=== PATIENT | male | born 1980 | race Caucasian/White ===

== ENCOUNTER 2017-10-20 18:22 | Emergency (ER) | payer OTHER, MEDICAID ==
[2017-10-20] MEDS ORDERED: ACETAMINOPHEN 325 MG TABLET PO STA (18:46)
--- NOTE | 2017-10-20 18:48 | ED Physician Documentation ---
PD HPI ABD PAIN - Stated complaint Stated Complaint: ABD PX - Chief complaint Chief Complaint: Abd Pain - History obtained from History obtained from: Patient - History of Present Illness Timing - onset: Other (He developed burning and tearing right lower quadrant pain about 2:00 today while putting his bag in his truck. The bag is quite heavy. He was at work. He denies any nausea or fevers, no trouble with his bowel movements. No history of abdominal surgeries. He dinner just before I coming, around 6 PM.) Review of Systems Ten Systems: 10 systems reviewed and negative Constitutional: denies: Fever, Chills, Myalgias Nose: reports: Reviewed and negative Throat: reports: Reviewed and negative Respiratory: reports: Reviewed and negative PD PAST MEDICAL HISTORY - Past Medical History Past Medical History: No - Past Surgical History Past Surgical History: No - Present Medications Home Medications: Ambulatory Orders Medication Instructions Recorded Confirmed No Known Home Medications [No 10/20/17 10/20/17 Known Home Medications] - Allergies Allergies/Adverse Reactions: Allergies Allergy/AdvReac Type Severity Reaction Status Date / Time No Known Drug Allergies Allergy Verified 10/20/17 18:37 - Social History Does the pt smoke?: No Smoking Status: Never smoker - Family History Family history: reports: Non contributory PD ED PE NORMAL - Vitals Vital signs reviewed: Yes - General General: Alert and oriented X 3, No acute distress - Neck Neck: Supple, no meningeal sign, No bony TTP - Cardiac Cardiac: RRR, No murmur - Respiratory Respiratory: No respiratory distress, Clear bilaterally - Abdomen Abdomen: Other (He is tender in the right lower quadrant and also the right inguinal area with a suggestion but not a clear hernia mass. Testes are normal and descended and nontender.) - Back Back: No CVA TTP, No spinal TTP - Derm Derm: Normal color, Warm and dry - Extremities Extremities: No edema, No calf tenderness / cord - Neuro Neuro: Alert and oriented X 3, Normal speech - Psych Psych: Normal mood, Normal affect Results - Vitals Vitals: Vital Signs - 24 hr 10/20/17 10/20/17 18:35 20:32 Temperature 36.5 C Heart Rate 75 60 Respiratory 18 16 Rate Blood Pressure 144/83 H 116/69 O2 Saturation 98 100 Oxygen O2 Source Room air - Labs Labs: Laboratory Tests 10/20/17 10/20/17 19:00 19:00 WBC 6.5 RBC 5.32 Hgb 16.0 Hct 46.8 MCV 87.9 MCH 30.1 MCHC 34.2 RDW 13.3 Plt Count 255 MPV 8.3 Neut # 3.1 Lymph # 2.6 Simpson # 0.6 Eos # 0.2 Baso # 0.0 Absolute Nucleated RBC 0.00 Nucleated RBC % 0.1 Sodium 138 Potassium 3.5 Chloride 102 Carbon Dioxide 27 Anion Gap 9.0 BUN 13 Creatinine 0.8 Estimated GFR (MDRD) 108 Glucose 81 Calcium 8.9 Total Bilirubin 0.7 AST 33 ALT 50 Alkaline Phosphatase 63 Total Protein 8.2 Albumin 4.7 Globulin 3.5 Albumin/Globulin Ratio 1.3 Lipase 13 L - Rads (name of study) CT A/P Radiology: EMP read contemporaneously (Fat-containing right inguinal hernia without other abnormality) PD MEDICAL DECISION MAKING - ED course ED course: He has a history most consistent with a new right inguinal hernia from work today. He did have some right lower quadrant tenderness this this was concerning for appendicitis and a CT was done for same and negative, showing only the right inguinal hernia with only fat in it. Surgical follow-up was advised. Departure - Departure Disposition: 01 Home, Self Care Clinical Impression: Right inguinal hernia Condition: Good Record reviewed to determine appropriate education?: Yes Instructions: ED Hernia Inguinal Follow-Up: Alfonzo Sun MD [Provider Admit Priv/Credential] - Comments: Ibuprofen as needed for pain, limit lifting to less than 15 pounds. Return if worse. Forms: Activity restrictions Discharge Date/Time: 10/20/17 20:47
[2017-10-20 19:11] LABS: BASOPHILS % (AUTO) 0.6 %; EOSINOPHILS # (AUTO) 0.2 10^3/uL (0.0-0.7); EOSINOPHILS % (AUTO) 2.4 %; LYMPHOCYTES # (AUTO) 2.6 10^3/uL (1.5-3.5); LYMPHOCYTES % (AUTO) 40.3 %; MEAN CORPUSCULAR HEMOGLOBIN 30.1 pg (27.0-31.0); MEAN CORPUSCULAR HGB CONC 34.2 g/dL (32.0-36.0); MEAN CORPUSCULAR VOLUME 87.9 fL (80.0-94.0); MEAN PLATELET VOLUME 8.3 fL (7.4-11.4); MONOCYTES # (AUTO) 0.6 10^3/uL (0.0-1.0); MONOCYTES % (AUTO) 9.2 %; NEUTROPHILS # (AUTO) 3.1 10^3/uL (1.5-6.6); NEUTROPHILS % (AUTO) 47.5 %; PLT - PLATELET COUNT 255 10^3/uL (130-450); RED BLOOD COUNT 5.32 10^6/uL (4.70-6.10); RED CELL DISTRIBUTION WIDTH 13.3 % (12.0-15.0); WHITE BLOOD COUNT 6.5 x10^3/uL (4.8-10.8)
[2017-10-20 19:23] LABS: ALBUMIN 4.7 g/dL (3.2-5.5); ALBUMIN/GLOBULIN RATIO 1.3 (1.0-2.2); BILIRUBIN,TOTAL 0.7 mg/dL (0.2-1.0); CALCIUM 8.9 mg/dL (8.5-10.3); CREATININE 0.8 mg/dL (0.6-1.2); TOTAL PROTEIN 8.2 g/dL (6.7-8.2)
[2017-10-20] MEDS ORDERED: IOPAMIDOL-300 100 ML VIAL ONE (19:54)
[2017-10-20] MEDS ORDERED: IOPAMIDOL-300 100 ML VIAL IVP ONE (20:09)
--- NOTE | 2017-10-20 20:28 | CT Report ---
EXAM: CT ABDOMEN AND PELVIS EXAM DATE: 10/20/2017 08:10 PM. CLINICAL HISTORY: IV only, RLQ pain, prob hernia. COMPARISONS: None. TECHNIQUE: Routine helical CT imaging was performed through the abdomen and pelvis. IV contrast: 100 ML ISOVUE 300. Enteric contrast: No. Reconstructions: Coronal and sagittal. In accordance with CT protocol optimization, one or more of the following dose reduction techniques w ere utilized for this exam: automated exposure control, adjustment of mA and/or KV based on patient s ize, or use of iterative reconstructive technique. FINDINGS: Lung Bases: Unremarkable. Liver: Normal. No masses. Gallbladder/Bile Ducts: Unremarkable. Spleen: Normal. Pancreas: Normal. Adrenal Glands: Normal. Kidneys: Normal. No masses or hydronephrosis. Peritoneal Cavity/Bowel: Normal. No free fluid, free air or adenopathy. No masses or acute inflammato ry process. The appendix is well visualized and normal. Pelvic Organs: There is a fat-containing right inguinal hernia. The neck of the hernia measures 1.5 c m in diameter. Vasculature: No aneurysms or other significant abnormality. Bones: No significant abnormality. Other: None. IMPRESSION: 1. Fat-containing right inguinal hernia. 2. Otherwise negative. Normal appendix. [facility] Referring Provider Line: [phone] SITE ID: [id number]
--- NOTE | 2017-10-20 20:28 | CT Preliminary Report ---
Exam: CT ABDOMEN/PELVIS W/ IMPRESSION: 1. Fat-containing right inguinal hernia. 2. Otherwise negative. Normal appendix. [facility] SITE ID: [id number]
[2017-10-20 20:32] VITALS: BP 116/69
[2017-10-20] MEDS ORDERED: CITALOPRAM 10 MG TABLET ONE (21:18)
== END 2017-10-20 20:47 | disposition home or self-care (01) ==
LOC: ED 18:22
DX: K40.90 Unilateral inguinal hernia, without obstruction or gangrene, not specified as recurrent (principal); R10.31 Right lower quadrant pain; X50.0XXA Overexertion from strenuous movement or load, initial encounter; Y99.0 Civilian activity done for income or pay
CPT/HCPCS: 36415; 74177; 80053; 83690; 85025; 99283; 99284; A9270; Q9967; 1040M

== ENCOUNTER 2017-11-17 06:37 | Day surgery (SDC) | payer OTHER, MEDICAID ==
[2017-11-17] MEDS ORDERED: LACTATED RINGERS 1,000 ML IV ONE ×2 (07:30→09:57)
[2017-11-17] MEDS ORDERED: ceFAZolin 2 GM/50 ML 2 GM/50 ML BAG IV ONE (07:30)
[2017-11-17] MEDS ORDERED: BUPIVACAINE 0.5% PF 10 ML VIAL ONE (07:30)
[2017-11-17] MEDS ORDERED: BUPIVACAINE 0.5% PF 30 ML VIAL SUBQ ONE (09:56)
[2017-11-17] MEDS ORDERED: ONDANSETRON 4 MG/2 ML VIAL IVP ONE (10:00)
[2017-11-17] MEDS ORDERED: MIDAZOLAM 2 MG/2 ML VIAL IVP ONE (10:00)
[2017-11-17] MEDS ORDERED: KETOROLAC 30 MG/ML VIAL IVP ONE (10:00)
[2017-11-17] MEDS ORDERED: LIDOCAINE-MPF 2% 5 ML VIAL IM ONE (10:00)
[2017-11-17] MEDS ORDERED: DEXAMETHASONE 4 MG/ML VIAL IVP ONE (10:00)
[2017-11-17] MEDS ORDERED: PROPOFOL 200 MG/20 ML VIAL IVP ONE (10:00)
[2017-11-17] MEDS ORDERED: fentaNYL 250 MCG/5 ML VIAL IVP ONE (10:00)
[2017-11-17] MEDS ORDERED: ACETAMINOPHEN 1,000 MG/100 ML 100 ML IV ONE (10:00)
--- NOTE | 2017-11-17 10:53 | OPERATIVE REPORT ---
Operative Report - General Procedure Date: 11/17/17 Planned Procedure: Right inguinal herniorrhaphy Pre-Op Diagnosis: Right inguinal hernia Procedure Performed: Right indirect inguinal herniorrhaphy with mesh and excision right cord lipoma Post Op Diagnosis: Indirect right inguinal hernia and right cord lipoma - Procedure Note Primary Surgeon: Barry Roth MD Anesthesia Provider: Salomón Flores CRNA Anesthesia Technique: General LMA, Local (30 mL of half percent Marcaine) IV Fluids (mL): 800 Estimated Blood Loss (mL): 5 Complications: None. - Other Other Information/Narrative: OPERATIVE DESCRIPTION/REPORT: After verbal and written informed consent was obtained detailing the risks of infection, bleeding requiring transfusion with its risks, nerve injury, and , and after I met with the patient confirming the surgery and the site of the surgery and after initialing the site of the surgery with a surgical marker , the patient was brought to the operative suite and placed supine on the operating table. Great care was taken to avoid pressure points to prevent pressure necrosis or nerve injury. Monitoring devices were applied along with TEDs and pneumatic compressive stockings (to prevent DVT). The patient received preoperative antibiotics for surgical prophylaxis. Salomón Flores sedated and anesthetized the patient for the entire procedure. The patient was prepped and draped in the usual sterile manner. With the patient draped my initials were clearly visible. A "time in" then confirmed that the patient was identified with 3 identifiers (name, date and medical record number), the history and physical was in the chart, the signed consent confirming the procedure was in the chart, the patient was in the correct position, the aforementioned prophylactic measures were in place or given, we had the correct personnel and equipment to complete the procedure and that anesthesia, surgery and nursing were given an opportunity to express any concerns. With the agreement of everyone in the room, we proceeded with the operation. A standard inguinal incision was made and dissection was carried down to the external oblique aponeurosis using a combination of Metzenbaum scissors and Bovie electrocautery. The external oblique aponeurosis was cleared of overlying adherent tissue, and the external ring was delineated. The external oblique was the incised with a scalpel and this incision was carried out to the external ring using Metzenbaum scissors. Having exposed the inguinal canal, the cord structures were from the canal using blunt dissection, and a [place] drain was placed around the cord structures at the level of the pubic tubercle. This Analy drain was then used to retract the cord structures as needed. Adherent cremasteric muscle was dissected free from the cord using Bovie electrocautery. The cord was then explored using a combination of sharp and blunt dissection, and the sac was found anteromedially to the cord structures. Dissection along the cord structures found a lipoma that was dissected back to the internal ring , ligated with a 3-0 Vicryl, transected, the stump cauterized and allowed to retract back into the abdomen. The sac was dissected free from the cord structures using a combination of blunt dissection and Bovie electrocautery. Once preperitoneal fat was encountered, the dissection stopped and the sac was high ligated with a 2-0 PDS, transected, the stump cauterized and allowed to retract back into the abdominal cavity and a large Bard Perfix plug (Ref# [id number], Lot# [id number], use date 2022-09-20) inserted into the internal ring. The plug was secured to the internal ring by interrupted 2-0 PDS sutures. The Bard Perfix enlay patch was then placed on the floor of the inguinal canal and secured in place using interrupted 0 PDS sutures to the conjoined tendon superiorly, pubic tubercle medially, and shelving edge inferiorly. By reinforcing the floor with the enlay patch, a new internal ring was thus formed. The Analy drain was removed. The wound was then irrigated using sterile saline, and hemostasis was obtained using Bovie electrocautery. The incision in the external oblique was approximated using a 3-0 Vicryl in a running fashion , thus reforming the external ring. The fascia and skin was then injected with the 1/2% marcaine for [facility] pain control. The skin incision was approximated with 4-0 Monocryl in a subcuticular fashion. The skin was prepped with benzoin and steristrips were applied. At this point a time out was performed that confirmed that all the counts were correct, the procedure that was performed, the blood loss, the IV fluids administered, and the patients condition. A dressing was then applied. Gentle downward traction ensured that the testes were well seated in the scrotum. Having tolerated the procedure well , the patient was taken to short stay in good and stable condition. Claudia disclaimer: This document was created in part using voice recognition technology. Because of the inherent limitations of the system ([employer]'s [employer] user manual states that the licensee understands that speech recognition is a statistical process and that recognition errors are inherent in the process), occasional same sounding word substitutions and grammatical errors do occur and persist despite proofreading. Please read this document for context.
[2017-11-17 12:08] VITALS: BP 113/66
== END 2017-11-17 06:38 | disposition home or self-care (01) ==
LOC: SDS 06:37
PROVIDERS: ATTEND Surgery
PROC: 0YU50JZ Supplement Right Inguinal Region with Synthetic Substitute, Open Approach (ICD-10-PCS; principal; 2017-11-17 08:15)
DX: K40.90 Unilateral inguinal hernia, without obstruction or gangrene, not specified as recurrent (principal); Z87.891 Personal history of nicotine dependence
CPT/HCPCS: 49505; C1781; J0131; J0690; J3010; J7120

== ENCOUNTER 2018-11-04 11:40 | Emergency (ER) | payer BC, MEDICAID ==
[2018-11-04] MEDS ORDERED: IBUPROFEN 800 MG TABLET PO STA (13:24)
--- NOTE | 2018-11-04 13:26 | ED Physician Documentation ---
PD HPI URI - Stated complaint Stated Complaint: FLU LIKE SYMPTOMS - Chief complaint Chief Complaint: Heent - History obtained from History obtained from: Patient - History of Present Illness Timing - onset: How many days ago (3) Timing duration: Days (3) Timing details: Still present Associated symptoms: Chills, Dry cough Contributing factors: Sick contact ( and daughter) - Additional information Additional information: The patient is a 38-year-old male who presents with myalgias, nonproductive cough, and chills of 3 days duration. He also reports headache and backache. He denies sore throat, abdominal pain, vomiting or diarrhea. His and robson graham have been sick with similar symptoms, and his daughter was recently prescribed Tamiflu. Review of Systems Constitutional: reports: Fever, Chills, Myalgias Ears: denies: Ear pain Nose: reports: Congestion Throat: denies: Sore throat Respiratory: reports: Cough. denies: Dyspnea GI: denies: Abdominal Pain, Nausea, Vomiting : denies: Dysuria Skin: denies: Rash Musculoskeletal: reports: Back pain. denies: Extremity swelling Neurologic: reports: Headache PD PAST MEDICAL HISTORY - Past Medical History Cardiovascular: None Respiratory: None Endocrine/Autoimmune: None GI: None : None HEENT: None Psych: None Musculoskeletal: None Derm: None - Past Surgical History Past Surgical History: No Ortho: Other - Present Medications Home Medications: Ambulatory Orders Medication Instructions Recorded Confirmed No Known Home Medications 10/20/17 11/04/18 - Allergies Allergies/Adverse Reactions: Allergies Allergy/AdvReac Type Severity Reaction Status Date / Time No Known Drug Allergies Allergy Verified 11/04/18 11:52 - Social History Does the pt smoke?: No Smoking Status: Never smoker PD ED PE NORMAL - Vitals Vital signs reviewed: Yes (normal) - General General: Alert and oriented X 3, Well developed/nourished - HEENT HEENT: Atraumatic, Ears normal, Pharynx benign - Neck Neck: Supple, no meningeal sign, No adenopathy - Cardiac Cardiac: RRR, No murmur - Respiratory Respiratory: No respiratory distress, Clear bilaterally - Abdomen Abdomen: Soft, Non tender - Back Back: No CVA TTP - Derm Derm: No rash - Extremities Extremities: No edema, No calf tenderness / cord - Neuro Neuro: Alert and oriented X 3, No motor deficit, Normal speech Results - Vitals Vitals: Vital Signs - 24 hr 11/04/18 11:50 Temperature 36.6 C Heart Rate 114 H Respiratory 14 Rate Blood Pressure 128/83 H O2 Saturation 97 Oxygen O2 Source Room air - Labs Labs: Laboratory Tests 11/04/18 11:58 Influenza A (Rapid) Negative Influenza B (Rapid) Negative PD MEDICAL DECISION MAKING - ED course Complexity details: reviewed results, considered differential, d/w patient ED course: The patient's presentation is most consistent with viral upper respiratory infection. His clinical presentation does not suggest meningitis, pneumonitis, otitis media, or acute pharyngitis. Treatment in the emergency department included Ibuprophen 800 mg orally. I discussed with him the expected course of illness, symptomatic treatment and outpatient follow-up, as well as potentially worrisome signs or symptoms that should prompt reevaluation in the emergency department. Departure - Departure Disposition: 01 Home, Self Care Clinical Impression: Viral URI with cough Condition: Stable Instructions: ED Upper Resp Infec No Abx Tx Comments: Your symptoms are most consistent with a viral upper respiratory infection. Antibiotics are not clinically indicated for this type of viral infection. Treatment should be geared toward managing symptoms: Drink plenty of fluids. Use Tylenol or ibuprofen as needed for fever or discomfort. Wash your hands frequently, and cover your cough. Follow up with your primary physician, or return to the emergency department, if not improving within 1-2 weeks. Return to the emergency department if you develop increasing difficulty breathing, or otherwise worsening symptoms.
[2018-11-04 13:38] VITALS: BP 129/75
== END 2018-11-04 13:41 | disposition home or self-care (01) ==
LOC: ED 11:40
DX: J06.9 Acute upper respiratory infection, unspecified (principal); B97.89 Other viral agents as the cause of diseases classified elsewhere
CPT/HCPCS: 87275; 87276; 99282; 99283; A9270